=== PATIENT | male | born 1975 | race African-American/Black ===

== ENCOUNTER 2019-02-25 19:45 | Emergency (ER) | payer BC, OTHER ==
[~2019-02-25 19:45] MED LIST: ISOVUE-370 76%-LOCM 1 ML ONE
[2019-02-25] MEDS ORDERED: Metoclopramide HCl 10 MG/2 ML VIAL ONE ×2 (21:17→21:34)
[2019-02-25] MEDS ORDERED: Ketorolac Tromethamine 30 MG/ML VIAL ONE (21:17)
[2019-02-25 21:21] LABS: #Basophils 0.1 thou/uL (0.0-0.2); #Eosinphils 0.1 thou/uL (0.0-0.7); #Lymphocytes 2.4 thou/uL (1.20-3.40); #Monocytes 0.7 thou/uL (0.11-0.59); #Neutrophils 4.8 thou/uL (1.40-6.50); %Basophils 0.7 % (0.0-1.0); %Eosinophils 1.4 % (0.0-10.0); %Lymphocytes 30.1 % (21.0-51.0); %Monocytes 8.7 % (0.0-10.0); %Neutrophils 59.1 % (42.0-75.0); Hemoglobin 14.2 g/dL (14.0-18.0); Mean Corpuscular HGB CONC 32.2 g/dL (32.0-36.0); Mean Corpuscular Hemoglobin 28.1 pg (27.0-31.0); Mean Corpuscular Volume 87.3 fL (78.0-98.0); Mean Platelet Volume 9.1 fL (7.4-10.4); Platelet Count 194 thou/uL (130-400); RBC Distribution Width 13.3 % (11.5-14.5); Red Blood Cell (RBC) Count 5.06 mill/uL (4.70-6.10)
--- NOTE | 2019-02-25 21:33 | CT ---
FExam: CT abdomen and pelvis with IV contrast Provided clinical history: Inguinal hernia, abdominal pain and nausea FINDINGS: The visualized lung bases are free of significant opacity. The liver, spleen, pancreas, kidneys and adrenal glands demonstrate a normal CT appearance. There is a right inguinal hernia containing nondilated distal small bowel. There is a small amount of fluid within the hernia sac. There is no evidence for bowel obstruction. No free intraperitoneal flu id or free intraperitoneal air evident. No focal inflammatory fat stranding evident. The regional major vascular structures demonstrate an unremarkable CT appearance. The osseous structures demonstrate no concerning lytic or blastic lesions. IMPRESSION: Small bowel containing right inguinal hernia without evidence for bowel obstruction.
[2019-02-25 21:51] LABS: ALT (SGPT) 19 U/L (8-55); AST (SGOT) 26 U/L (5-34); Albumin 3.8 g/dL (3.5-5.0); Alkaline Phosphatase 66 U/L (40-150); Anion Gap 11 mmol/L (10-20); BUN (Urea Nitrogen) 11 mg/dL (8.9-20.6); Bilirubin, Total 0.4 mg/dL (0.2-1.2); Calc. Creatinine Clearance 0 mL/min (70-130); Calcium 8.9 mg/dL (7.8-10.44); Carbon Dioxide 24 mmol/L (22-29); Chloride 106 mmol/L (98-107); Estimated GFR-MDRD Greater than 90; Globulin 3.2 g/dL (2.4-3.5); Glucose 76 mg/dL (70-105); Lipase 15 U/L (8-78); Potassium 4.1 mmol/L (3.5-5.1); Sodium 137 mmol/L (136-145)
[2019-02-25 22:26] LABS: Bilirubin Negative (Negative); Blood, Urine Negative (Negative); Clarity CLEAR (Clear); Glucose, Urine (Dipstick) Negative (Negative); Leukocyte Negative (Negative); Nitrite Negative (Negative); Protein, Urine (Dipstick) Negative (Neg-Trace); Specific Gravity, Urine 1.044 (1.002-1.036)
[2019-02-25 22:27] LABS: Bacteria/HPF None Seen HPF (None Seen); Hyaline Casts/LPF 0-3 HYALINE CAST LPF (0-3 Hyaline); RBC/HPF 0-3 HPF (0-3); Squamous Epithelial None Seen HPF (0-3); WBC/HPF 0-3 HPF (0-3)
== END 2019-02-25 23:30 | disposition home or self-care (01) ==
LOC: ERS 19:45
DX: K40.90 Unilateral inguinal hernia, without obstruction or gangrene, not specified as recurrent (principal); R51 Headache
CPT/HCPCS: 74177; 80053; 81003; 83690; 85025; 96365; 96375; J1885; J2765; Q9966

== ENCOUNTER 2019-03-08 07:13 | Outpatient (CLI) | payer BC ==
--- NOTE | 2019-03-11 22:32 | EKG ---
Test Reason : Blood Pressure : / mmHG Vent. Rate : 059 BPM Atrial Rate : 059 BPM P-R Int : 148 ms QRS Dur : 078 ms QT Int : 390 ms P-R-T Axes : 020 065 040 degrees QTc Int : 386 ms Sinus bradycardia Otherwise normal ECG No previous ECGs available Confirmed by Stephen ALVARADO ([id number]) on 03/11/2019 10:32:08 PM Referred By: ROSALIE Confirmed By:Stephen ALVARADO
== END 2019-03-08 07:14 | disposition home or self-care (01) ==
LOC: LABBT 07:13
PROVIDERS: ATTEND Surgery
DX: Z01.818 Encounter for other preprocedural examination (principal); K40.90 Unilateral inguinal hernia, without obstruction or gangrene, not specified as recurrent
CPT/HCPCS: 93005; 93010

== ENCOUNTER 2019-03-12 07:58 | Day surgery (SDC) | payer BC ==
[2019-03-08 08:37] VITALS: BMI 29.7
[2019-03-12] MEDS ORDERED: Bupivacaine/Epinephrine 0.25% 30 ML VIAL ONE (10:40)
[2019-03-12] MEDS ORDERED: Fentanyl 100 MCG/2 ML VIAL ONE ×4 (10:48→13:16)
--- NOTE | 2019-03-12 12:54 | OP ---
DATE OF PROCEDURE: 03/12/2019 PREOPERATIVE DIAGNOSIS: Right inguinal hernia. POSTOPERATIVE DIAGNOSIS: Bilateral inguinal hernia. PROCEDURE PERFORMED: Da Layla laparoscopic bilateral inguinal hernia repair with mesh, 3DMax large. ANESTHESIA: General. COMPLICATIONS: None. SPECIMEN: None. FINDINGS: Bilateral inguinal hernia. DESCRIPTION OF PROCEDURE: The patient was taken to the operating room and laid supine on the operating room table. After general anesthetic was obtained, a Sellers was placed, the abdomen was shaved, prepped, and draped in a sterile fashion. A curved incision was made above the umbilicus. Cautery was dissected down to and scored the fascia. Abdominal cavity was entered bluntly using a Jerica clamp. Holding stitch of PDS placed on each side of the fascia, an 11 mm balloon trocar was placed. High-flow pneumoperitoneum was obtained. Left and right abdominal 8 mm robot ports were placed. All ports were docked to the robot. The peritoneum was opened in the bilateral groins. The preperitoneal space was bluntly dissected to the pubic tubercle medially and to the anterior superior iliac crest laterally. The shelving edge of inguinal ligament was fully exposed. Bilateral indirect inguinal hernias were dissected high up on to the cord structures onto the peritoneum and out of the indirect defect. There were no direct defects. Bilateral 3DMax large was brought into the sterile field and placed in the abdomen and labeled, medial aspect was placed over pubic tubercle bilateral. The mesh was laid out to cover the femoral, direct and indirect areas. The mesh was sewn via 2-0 Vicryl to the pubic tubercle medially to the posterior fascia laterally. The peritoneum was reapproximated using 3-0 Stratafix on both sides. All needles were removed from the abdomen and accounted for. All port sites were infiltrated using local anesthetic. All ports were removed under camera visualization. Pneumoperitoneum was let down. PDS was used to close the fascial defect above the umbilicus. All incisions were irrigated and closed using 4-0 Monocryl and Dermabond. The patient was sent to Recovery in stable condition. All instrument counts, needle counts, and lap counts were correct. Job ID: [id number]
[2019-03-12] MEDS ORDERED: HYDROcodone/Acetaminophen 5/325 mg Tablet ONE ×2 (14:53→15:33)
[2019-03-12] MEDS ORDERED: Glycopyrrolate 0.2 MG/ML 5 ML SYRINGE ONE (15:21)
[2019-03-12] MEDS ORDERED: PROPOFOL 200 MG/20 ML VIAL ONE (15:21)
[2019-03-12] MEDS ORDERED: ePHEDrine 50 MG/ML VIAL ONE (15:21)
[2019-03-12] MEDS ORDERED: Lidocaine 1% PF 5 ML VIAL ONE (15:21)
[2019-03-12] MEDS ORDERED: Ondansetron PF 4 MG/2 ML Vial ONE (15:21)
[2019-03-12] MEDS ORDERED: Dexamethasone 20 MG/5 ML VIAL ONE (15:21)
[2019-03-12] MEDS ORDERED: Rocuronium Bromide 10 MG/ML (10ML VIAL) ONE (15:21)
[2019-03-12] MEDS ORDERED: Ketorolac Tromethamine 30 MG/ML VIAL ONE (15:21)
== END 2019-03-12 16:32 | disposition home or self-care (01) ==
LOC: SDC 07:58
PROVIDERS: ATTEND Surgery
PROC: 0YUA4JZ Supplement Bilateral Inguinal Region with Synthetic Substitute, Percutaneous Endoscopic Approach (ICD-10-PCS; principal; 2019-03-12)
DX: K40.20 Bilateral inguinal hernia, without obstruction or gangrene, not specified as recurrent (principal); Z79.899 Other long term (current) drug therapy
CPT/HCPCS: C1781; J0131; J0690; J1100; J1885; J2001; J2405; J2704; J3010; J3490

== ENCOUNTER 2019-04-30 13:32 | Outpatient (CLI) | payer BC ==
--- NOTE | 2019-04-30 14:23 | CT ---
Contrast-enhanced images abdomen and pelvis. History is inguinal surgery. Contrast-enhanced images of the abdomen pelvis obtained after administration of IV and oral contrast. The lung bases are unremarkable. No evidence of free intraperitoneal air seen. The liver, spleen, gallbladder, pancreas, adrenal glands and kidneys are unremarkable. The small mychal l is unremarkable. A normal appendix is visualized. The colon is unremarkable. There is a area of fluid collection in the right inguinal canal measuring 8.5 x 6.9 x 10.9 cm. This m ay represent a postoperative seroma. This fills much of the right inguinal canal. No evidence of herniation of intraperitoneal fat or intestine seen. IMPRESSION: Post operative right inguinal canal fluid collection most compatible with a seroma.
== END 2019-04-30 13:33 | disposition home or self-care (01) ==
LOC: BICCT 13:32
PROVIDERS: ATTEND Surgery
DX: K91.872 Postprocedural seroma of a digestive system organ or structure following a digestive system procedure (principal)
CPT/HCPCS: 74177

== ENCOUNTER 2019-09-05 06:58 | Outpatient (CLI) | payer BC ==
--- NOTE | 2019-09-05 08:36 | ULT ---
Scrotal ultrasound including color and spectral Doppler imaging: HISTORY: Right inguinal hernia, follow-up seroma COMPARISON: Abdomen and pelvic CT scan right testes measures 4.0 x 1.8 x 2.8 cm. Left testes measures 4.3 x 2.0 x 2.6 cm. There is a solid-appearing echogenic nodular focus in the ri ght groin measuring 1.8 x 2.0 x 3.4 cm which corresponds to the palpable finding. Right testes has a slightly undulating anterior margin with a focal area of increased echogenicity along the anterior margin of the right testes. I'm not certain as to the etiology of this., Conceivably this could be developmental or possibly related to prior injury. No significant abnormal HIDA hydrocele. There is s ome trace fluid in the left groin. Minimally dilated veins in the left groin. Vascular flow documented to both testes. No evidence for testicular torsion. No overt intratesticular mass. IMPRESSION: Poorly circumscribed somewhat heterogeneously echogenic solid appearing mass in the right groin corre sponding to the palpable finding. Not certain as to the etiology. Conceivably this solid-appearing hematoma with resolution of the large previously noted seroma when compared to the prior CT scan of [facility] 2018. The margin of the right testes is slightly undulating with a small echogenic focus along the anterior wall, nonspecific. No solid intratesticular mass. No evidence for this testicular torsion. Small fluid collection in the left groin, presumably minimal increased veins in the left inguinal canal.. Number Represent a solid hematoma. FINDINGS:
== END 2019-09-05 06:59 | disposition home or self-care (01) ==
LOC: BICULT 06:58
PROVIDERS: ATTEND Urology
DX: K40.90 Unilateral inguinal hernia, without obstruction or gangrene, not specified as recurrent (principal); T88.8XXD Other specified complications of surgical and medical care, not elsewhere classified, subsequent encounter; R19.00 Intra-abdominal and pelvic swelling, mass and lump, unspecified site
CPT/HCPCS: 76870; 93976

== ENCOUNTER 2021-03-21 23:45 | Emergency (ER) | payer BC ==
[2021-03-21] MEDS ORDERED: Morphine 4 MG/ML VIAL ONE (23:59)
[2021-03-21] MEDS ORDERED: Ondansetron PF 4 MG/2 ML Vial ONE (23:59)
[2021-03-21] MEDS ORDERED: Ketorolac Tromethamine 30 MG/ML VIAL ONE (23:59)
[2021-03-22 00:39] LABS: Hemoglobin 14.8 g/dL (14.0-18.0); Mean Corpuscular Hemoglobin 27.9 pg (27.0-31.0); Mean Corpuscular Volume 87.2 fL (78.0-98.0); RBC Distribution Width 13.8 % (11.5-14.5); Red Blood Cell (RBC) Count 5.29 mill/uL (4.70-6.10)
[2021-03-22] MEDS ORDERED: Morphine 4 MG/ML VIAL ONE (00:59)
[2021-03-22 01:02] LABS: #Basophils 0.1 thou/uL (0.0-0.2); #Eosinphils 0.2 thou/uL (0.0-0.7); #Lymphocytes 4.5 thou/uL (1.20-3.40); #Monocytes 1.1 thou/uL (0.11-0.59); #Neutrophils 6.5 thou/uL (1.40-6.50); %Basophils 0.9 % (0.0-1.0); %Eosinophils 1.7 % (0.0-10.0); %Lymphocytes 36.2 % (21.0-51.0); %Monocytes 8.9 % (0.0-10.0); %Neutrophils 52.3 % (42.0-75.0); Large Platelets SLIGHT; MDiff Complete? YES; Mean Platelet Volume 11.8 fL (7.4-10.4); Platelet Count 163 thou/uL (130-400); Platelet Morphology Comment Appears Adequate; White Blood Cell (WBC) Count 12.4 thou/uL (4.8-10.8)
[2021-03-22 01:45] LABS: Bilirubin Negative (Negative); Blood, Urine Negative (Negative); Clarity Clear (Clear); Glucose, Urine (Dipstick) Normal (Negative); Ketone, Urine Negative (Negative); Leukocyte Negative Leu/uL (Negative); Nitrite Negative (Negative); Protein, Urine (Dipstick) Negative (Neg-Trace); Specific Gravity, Urine 1.014 (1.002-1.036); Urobilinogen Normal mg/dL (Less than 2)
[2021-03-22 01:46] LABS: ALT (SGPT) 20 U/L (8-55); AST (SGOT) 21 U/L (5-34); Albumin 3.9 g/dL (3.5-5.0); Alkaline Phosphatase 75 U/L (40-110); Anion Gap 14 mmol/L (10-20); BUN (Urea Nitrogen) 15 mg/dL (8.9-20.6); Bilirubin, Total 0.3 mg/dL (0.2-1.2); Calc. Creatinine Clearance 0 mL/min (70-130); Carbon Dioxide 23 mmol/L (22-29); Chloride 107 mmol/L (98-107); Globulin 2.9 g/dL (2.4-3.5); Glucose 115 mg/dL (70-105); Lipase 39 U/L (8-78); Potassium 3.2 mmol/L (3.5-5.1); Protein, Total 6.8 g/dL (6.0-8.3); Sodium 141 mmol/L (136-145)
[2021-03-22] MEDS ORDERED: HYDROcodone/Acetaminophen 5/325 mg Tablet ONE (02:07)
== END 2021-03-22 02:15 | disposition home or self-care (01) ==
LOC: ERS 23:45
DX: N13.2 Hydronephrosis with renal and ureteral calculous obstruction (principal); E78.5 Hyperlipidemia, unspecified; E78.00 Pure hypercholesterolemia, unspecified
CPT/HCPCS: 74176; 80053; 81003; 83690; 85025; 96374; 96375; 96376; J1885; J2270; J2405